=== PATIENT | female | born 1965 | race Caucasian/White ===

== ENCOUNTER 2023-10-20 03:37 | Outpatient (CLI) | payer SELFPAY ==
[2023-10-20 14:38] LABS: Hemoglobin A1C 5.4 % (<5.7)
== END 2023-10-20 03:38 | disposition home or self-care (01) ==
LOC: LBO 03:38
PROVIDERS: Visit Provider General Practice
DX: E66.8 Other obesity (principal); L03.115 Cellulitis of right lower limb
CPT/HCPCS: 36415; 83036

== ENCOUNTER 2024-02-27 03:24 | Outpatient (CLI) | payer SELFPAY ==
[2024-02-27 12:29] LABS: Bilirubin Small (Negative); Blood Moderate (Negative); Clarity Cloudy (Clear); Glucose Negative (Negative); Ketones Negative (Negative); Leukocyte Esterase Negative (Negative); Nitrite Negative (Negative); Specific Gravity >= 1.030 (1.005-1.025); Urobilinogen 0.2 mg/dL (Up to 0.2); pH 5.5 (5-8)
[2024-02-27 12:35] LABS: Bacteria Many HPF (Negative); Epithelial Cells Few HPF (Negative); WBC 0-2 HPF (0-5)
[2024-02-27 12:36] LABS: C & S Indicated? No; Casts Negative LPF (Negative); Crystals Mod Calcium Oxalate HPF (Negative); Mucus Trace (Negative)
[2024-02-27 12:48] LABS: ALT 31 U/L (14-59); AST 14 U/L (15-37); Albumin 3.4 g/dL (3.4-5.0); Alkaline Phosphatase 108 U/L (46-116); Anion Gap 6.1 mmol/L (3-11); BUN 14 mg/dL (7-18); Bilirubin, Total 0.37 mg/dL (0.2-1.0); C-Reactive Protein 0.81 mg/dL (<or=0.5); CO2 29.9 mmol/L (21.0-32.0); CREATININE 0.7 mg/dL (0.55-1.02); Calcium 10.6 mg/dL (8.5-10.1); Chloride 108 mmol/L (98-107); Estimated GFR 101.44 (mL/min/1.73m2); Glucose 95 mg/dL (74-106); Potassium 3.8 mmol/L (3.5-5.1); Sodium 144 mmol/L (136-145); TSH 1.51 uIU/mL (0.36-3.74); Total Protein 7.4 g/dL (6.4-8.2)
== END 2024-02-27 03:25 | disposition home or self-care (01) ==
LOC: LOS 03:24
PROVIDERS: Visit Provider General Practice
DX: R60.9 Edema, unspecified (principal); E66.9 Obesity, unspecified
CPT/HCPCS: 80053; 81003; 81015; 84443; 86140